=== PATIENT | female | born 1930 | race Caucasian/White ===

== ENCOUNTER 2017-04-26 19:20 | Inpatient (IN) | payer MEDICARE, BC ==
[~2017-04-26] VITALS: Ht 157.5 cm; Wt 49.0 kg
[~2017-04-26 19:20] MED LIST: ACETAMIN325 MG PO; ACETAMIN500 M1 OR; ACTIQ BU; ADLT ASA LOW81 MG PO; ALPRAZOLAM0.25 MG PO; AMITRIPTYLIN10 MG PO; ASPIRIN325 MG PO; ATENOLOL50 MG PO; CALTRATE 600 OR; CEFTIN250 MG PO; CEPHALEXIN500 MG PO; CIPRO XR500 MG PO; CIPRO500 MG PO; CIPROFLOXACN250 MG PO; CIPROFLOXACN500 MG PO; CYANOCOBALAM OR; CYMBALTA30 MG OR; CYMBALTA60 MG PO; DUONEB INH; DURAGESIC75 MCG/H1 TD; ELAVIL25 MG PO; FENTORA BU; FENTORA400 MCG BU; FERR SULFATE325 MG OR; FERROUS SULF325 M2 PO; FOLIC ACID400 MC1 OR; KLOR-CON 1010 ME1 PO; KLOR-CON 1010 MEQ OR; KRISTALOSE10 GM OR; LACTULOS2 PO; LASIX 20 MG TAB20 MG PO; LASIX20 MG OR; LIDODERM5 % EX; LISINOPRIL2.5 MG PO; LOTEMAX0.52 OU; LYRICA100 MG OR; LYRICA150 MG PO; LYRICA50 MG OR; LYRICA75 MG OR; LYRICA75 MG PO; MACROBID100 MG OR; MAG CITRATE OR; MET12.5TAB PO; METHADONE PO; METHADONE10 M1 PO; METHADOSE10 MG OR; NITRO-DUR0.4 MG/HR TD; NITROFURANTN100 MG PO; NITROFURANTOIN100 MG PO; NITROSTAT0.4 MG SL; NORVASC2.5 MG PO; NORVASC5 MG PO; OMEPRAZOLE40 MG PO; OXYCODONE HCL5 MG PO; POT CHLORIDE10 ME1 PO; PRAVACHOL10 MG OR; PRAVACHOL40 MG PO; PRAVASTATIN40 MG PO; PRILOSEC40 MG PO; RESTASIS0.05 % OU; SEROQUEL50 MG OR; TYLENOL325 MG OR; TYLENOL500 MG OR; ULTRAM50 M1 PO; VALIUM10 MG OR; VIT B-COMPLX100 MG PO; VITAMIN B-1100 M1 PO; VITAMIN B-12100 MCG OR; VITAMIN B-121000 MCG OR; ZANAFLEX2 MG OR; [UNRECOGNIZED DRUG - OTHER] OR; [UNRECOGNIZED DRUG - OTHER] OR; [UNRECOGNIZED DRUG - OTHER] PO
[2017-04-26] MEDS ORDERED: OXYCONTIN15 MG PO (20:46)
[2017-04-26] MEDS ORDERED: OXYCODONE10 M1 PO (20:47)
[2017-04-26 20:53] LABS: HEMATOCRIT 35.2 % (37.0-47.0); HEMOGLOBIN 11.2 g/dl (12.0-16.0); IMMATURE GRANULOCYTES 0.5 % (0.0-1.0); MEAN CELL VOLUME 91.2 fL CALC (80.0-100.0); MEAN CORPUSCULAR HGB CONC 31.8 g/L CALC (32.0-36.0); NEUT# 8.51 thou/uL (2.00-7.15); RED BLOOD COUNT 3.86 mill/uL (4.20-5.60); RED CELL DISTRI WIDTH 13.8 % (11.5-15.5)
[2017-04-26 21:00] LABS: ALBUMIN 4.7 g/dL (3.2-5.0); ALKALINE PHOSPHATASE 105 u/l (38-126); ANION GAP 19 (6-22 (CALC)); BILIRUBIN, TOTAL 0.3 mg/dL (0.0-1.4); BUN 24 mg/dL (8-23); BUN/CREATININE RATIO 35 (12-20 (CALC)); CALCIUM 9.8 mg/dL (8.4-10.2); CARBON DIOXIDE 26 mmol/l (22-30); CHLORIDE 102 mmol/l (95-108); CREATININE 0.7 mg/dL (0.5-1.0); GFR > 60 ML/MIN (>=60 (CALC)); GFR FOR AFR.AMER. > 60 ML/MIN (>=60 (CALC)); GLUCOSE 115 mg/dL (82-115); POTASSIUM 4.5 mmol/l (3.5-5.1); SGOT/AST 29 u/l (9-36); SGPT/ALT 41 u/l (11-66); SODIUM 142 mmol/l (137-146)
[2017-04-26 23:17] VITALS: BP 155/72
[2017-04-27 03:30] VITALS: BP 128/62
[2017-04-27 08:45] VITALS: BP 146/63
[2017-04-27] MEDS ORDERED: MIRALAX3350 NF PO (14:08)
[2017-04-27] MEDS ORDERED: FLEXERIL5 MG PO (14:09)
[2017-04-27] MEDS ORDERED: ASPIRIN 8181 MG PO (14:10)
[2017-04-27] MEDS ORDERED: NITROSTAT0.4 MG SL (14:11)
[2017-04-27 16:05] VITALS: BP 154/64
[2017-04-27 21:32] VITALS: BP 205/94
[2017-04-27 21:35] VITALS: BP 198/93
[2017-04-27 23:35] VITALS: BP 186/92
[2017-04-28 03:58] VITALS: BP 132/56
[2017-04-28 05:46] LABS: HEMATOCRIT 31.7 % (37.0-47.0); IMMATURE GRANULOCYTES 0.5 % (0.0-1.0); MEAN CELL VOLUME 92.2 fL CALC (80.0-100.0); MEAN CORPUSCULAR HGB 29.1 pG CALC (26.0-32.0); MEAN CORPUSCULAR HGB CONC 31.5 g/L CALC (32.0-36.0); NEUT# 7.22 thou/uL (2.00-7.15); RED BLOOD COUNT 3.44 mill/uL (4.20-5.60); RED CELL DISTRI WIDTH 13.5 % (11.5-15.5)
[2017-04-28 06:07] LABS: ANION GAP 14 (6-22 (CALC)); BUN 18 mg/dL (8-23); BUN/CREATININE RATIO 29 (12-20 (CALC)); CALCIUM 8.9 mg/dL (8.4-10.2); CARBON DIOXIDE 26 mmol/l (22-30); CHLORIDE 105 mmol/l (95-108); CREATININE 0.6 mg/dL (0.5-1.0); GFR > 60 ML/MIN (>=60 (CALC)); GFR FOR AFR.AMER. > 60 ML/MIN (>=60 (CALC)); GLUCOSE 83 mg/dL (82-115); POTASSIUM 4.3 mmol/l (3.5-5.1); SODIUM 141 mmol/l (137-146)
[2017-04-28 08:32] VITALS: BP 114/55
[2017-04-28 11:55] VITALS: BP 120/63
[2017-04-28 15:32] VITALS: BP 121/50
[2017-04-28 20:00] VITALS: BP 138/74
[2017-04-29 04:00] VITALS: BP 157/69
[2017-04-29 05:48] LABS: HEMATOCRIT 28.9 % (37.0-47.0); HEMOGLOBIN 9.2 g/dl (12.0-16.0); IMMATURE GRANULOCYTES 0.3 % (0.0-1.0); MEAN CELL VOLUME 92.6 fL CALC (80.0-100.0); MEAN CORPUSCULAR HGB 29.5 pG CALC (26.0-32.0); MEAN CORPUSCULAR HGB CONC 31.8 g/L CALC (32.0-36.0); NEUT# 4.07 thou/uL (2.00-7.15); RED BLOOD COUNT 3.12 mill/uL (4.20-5.60); RED CELL DISTRI WIDTH 13.7 % (11.5-15.5)
[2017-04-29 06:02] LABS: PROTHROMBIN TIME 10.7 SECONDS (9.0-12.5)
[2017-04-29 06:09] LABS: ANION GAP 12 (6-22 (CALC)); BUN 17 mg/dL (8-23); BUN/CREATININE RATIO 28 (12-20 (CALC)); CALCIUM 8.5 mg/dL (8.4-10.2); CARBON DIOXIDE 26 mmol/l (22-30); CHLORIDE 106 mmol/l (95-108); CREATININE 0.6 mg/dL (0.5-1.0); GFR > 60 ML/MIN (>=60 (CALC)); GFR FOR AFR.AMER. > 60 ML/MIN (>=60 (CALC)); GLUCOSE 82 mg/dL (82-115); POTASSIUM 4.3 mmol/l (3.5-5.1); SODIUM 139 mmol/l (137-146)
[2017-04-29 07:50] VITALS: BP 183/72
[2017-04-29 09:50] VITALS: BP 154/61
[2017-04-29] MEDS ORDERED: FLORASTOR250 M1 PO (10:40)
[2017-04-29] MEDS ORDERED: VANCOMYCIN750 MG IV (10:40)
[2017-04-29] MEDS ORDERED: CIPROFLOXACN500 MG PO (10:40)
== END 2017-04-29 17:10 | disposition home health service (06) | DRG 603 ==
LOC: ENPENDDIS → ED 19:20 → ED-I 22:18 → ED 22:46 → MS2 22:47
PROVIDERS: Emergency Medicine; ADMIT Internal Medicine; ATTEND Internal Medicine
PROC: 02HV33Z Insertion of Infusion Device into Superior Vena Cava, Percutaneous Approach (ICD-10-PCS; principal; 2017-04-29)
DX: L03.115 Cellulitis of right lower limb (principal); G82.20 Paraplegia, unspecified; T83.511A Infection and inflammatory reaction due to indwelling urethral catheter, initial encounter; N39.0 Urinary tract infection, site not specified; L97.411 Non-pressure chronic ulcer of right heel and midfoot limited to breakdown of skin; I70.234 Atherosclerosis of native arteries of right leg with ulceration of heel and midfoot; I70.202 Unspecified atherosclerosis of native arteries of extremities, left leg; I25.10 Atherosclerotic heart disease of native coronary artery without angina pectoris; I10 Essential (primary) hypertension; G62.9 Polyneuropathy, unspecified; M81.0 Age-related osteoporosis without current pathological fracture; D63.8 Anemia in other chronic diseases classified elsewhere; N31.9 Neuromuscular dysfunction of bladder, unspecified; G31.84 Mild cognitive impairment of uncertain or unknown etiology; G89.4 Chronic pain syndrome; M21.372 Foot drop, left foot; M21.371 Foot drop, right foot; B95.62 Methicillin resistant Staphylococcus aureus infection as the cause of diseases classified elsewhere; Z98.61 Coronary angioplasty status; Z87.440 Personal history of urinary (tract) infections; Z99.3 Dependence on wheelchair
CPT/HCPCS: J0692; J1650; J3370

== ENCOUNTER 2018-06-25 10:08 | Emergency (ER) | payer MEDICARE, BC ==
[~2018-06-25] VITALS: Ht 157.5 cm; Wt 59.1 kg
[~2018-06-25 10:08] MED LIST changes: +ASPIRIN 8181 MG PO; +FLEXERIL5 MG PO; +FLORASTOR250 M1 PO; +MIRALAX3350 NF PO; +OXYCODONE10 M1 PO; +OXYCONTIN15 MG PO; +VANCOMYCIN750 MG IV
[2018-06-25 11:04] LABS: HEMATOCRIT 30.9 % (37.0-47.0); HEMOGLOBIN 9.7 g/dl (12.0-16.0); IMMATURE GRANULOCYTES 0.3 % (0.0-5.0); MEAN CELL VOLUME 94.5 fL CALC (80.0-100.0); MEAN CORPUSCULAR HGB 29.7 pG CALC (26.0-32.0); MEAN CORPUSCULAR HGB CONC 31.4 g/L CALC (32.0-36.0); NEUT# 5.07 thou/uL (2.00-7.15); RED BLOOD COUNT 3.27 mill/uL (4.20-5.60)
[2018-06-25 11:13] LABS: ALBUMIN 3.7 g/dL (3.2-5.0); ALKALINE PHOSPHATASE 77 u/l (38-126); ANION GAP 14 (6-22 (CALC)); BILIRUBIN, TOTAL 0.3 mg/dL (0.0-1.4); BUN 18 mg/dL (8-23); BUN/CREATININE RATIO 25 (12-20 (CALC)); CARBON DIOXIDE 26 mmol/l (22-30); CHLORIDE 105 mmol/l (95-108); CREATININE 0.7 mg/dL (0.5-1.0); GFR > 60 ML/MIN (>=60 (CALC)); GFR FOR AFR.AMER. > 60 ML/MIN (>=60 (CALC)); LIPASE 24 u/l (23-300); POTASSIUM 4.2 mmol/l (3.5-5.1); SGOT/AST 32 u/l (9-36); SGPT/ALT 34 u/l (11-66); SODIUM 141 mmol/l (137-146); TOTAL PROTEIN 6.6 g/dL (6.3-8.2)
[2018-06-25] MEDS ORDERED: OXYCONTIN15 MG PO (11:51)
[2018-06-25] MEDS ORDERED: ELAVIL50 MG PO (11:53)
[2018-06-25] MEDS ORDERED: METO25TAB PO (11:55)
[2018-06-25] MEDS ORDERED: SUPER B COM2 PO (11:56)
[2018-06-25] MEDS ORDERED: CIPRO XR500 MG PO (12:47)
[2018-06-25] MEDS ORDERED: PROBIOTI2 PO (12:51)
[2018-06-25] MEDS ORDERED: NITROFURANTOIN50 MG PO (12:53)
[2018-06-25 14:09] VITALS: BP 141/61
== END 2018-06-25 14:34 | disposition home or self-care (01) ==
LOC: ED 10:08
PROVIDERS: Emergency Medicine
DX: N39.0 Urinary tract infection, site not specified (principal); G62.9 Polyneuropathy, unspecified; I10 Essential (primary) hypertension; G82.20 Paraplegia, unspecified; F32.9 Major depressive disorder, single episode, unspecified
CPT/HCPCS: Q9967